=== PATIENT | male | born 1990 | race Caucasian/White ===

== ENCOUNTER 2018-05-06 14:08 | Emergency (ER) | payer OTHER ==
[~2018-05-06] VITALS: Ht 165.1 cm; Wt 68.5 kg
== END 2018-05-06 17:06 | disposition home or self-care (01) ==
LOC: ER 14:08
DX: B02.9 Zoster without complications (principal)

== ENCOUNTER 2018-11-19 07:26 | Outpatient (CLI) | payer OTHER | END 2018-11-19 07:33 | disposition home or self-care (01) | LOC: RAD 07:26 | DX: M99.02 Segmental and somatic dysfunction of thoracic region (principal) ==

== ENCOUNTER → 2018-11-23 14:57 | Outpatient (CLI) | payer OTHER | END | disposition home or self-care (01) | LOC: RAD 14:57 | DX: M99.02 Segmental and somatic dysfunction of thoracic region (principal); M99.01 Segmental and somatic dysfunction of cervical region ==

== ENCOUNTER 2024-10-17 08:36 | Outpatient (CLI) | payer OTHER | END 2024-10-17 08:55 | disposition home or self-care (01) | LOC: RAD 08:36 | DX: M54.9 Dorsalgia, unspecified (principal) ==